=== PATIENT | female | born 1995 | race Caucasian/White ===

== ENCOUNTER 2017-04-18 17:47 | Inpatient (IN) | payer OTHER ==
--- NOTE | ~2017-04-18 | DS ---
Unit #: [id number] #: [id number] Patient: JOSE M BRENNER [id number] [facility] [address] [place] [address] [id number] MR#: [id number] NAME: JOSE M BRENNER ROOM: [facility] Age: 21 Sex: F Admission Date: 04/18/2017 : 1995 Discharge Date: 04/21/2017 Attending Physician: Al Garland M.D. DISCHARGE SUMMARY REASON FOR ADMISSION Jose M is a 21-year-old woman, who attempted to overdose on a bottle of pills yesterday, but was stopped by her family. 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 She felt that her current dose of Wellbutrin was ineffective and she could not contract for safety. After [facility] was [facility] Please see [facility] records. HOSPITAL COURSE The patient was admitted and placed on suicide precautions. Wellbutrin XL was increased to 300 mg daily and she participated in psychotherapy groups and activities. She had no further suicidal ideation after admission, and her affect and mood brightened. On the date of discharge, she felt safe to return to the outpatient setting with no further suicidal ideation, intent, or plan. DISCHARGE DIAGNOSES AXIS I: Major depression, F33.2. AXIS II: No diagnosis. AXIS III: No acute. AXIS IV: AXIS V: DISCHARGE INSTRUCTIONS Follow up with [facility] and primary care physician. DISCHARGE MEDICATIONS 1. Wellbutrin XL 300 mg daily for depression. 2. Trazodone 50 mg at bedtime as needed for insomnia. CONDITION AT DISCHARGE Improved. PROGNOSIS Fair to good. DIET Per primary care doctor. Unit #: [id number] #: [id number] Patient: JOSE M BRENNER ACTIVITY Per primary care doctor. Dictated by... Al Garland M.D. MRH/yasminl TD: 04/21/2017 18:11 JOB #: [id number] DISCHARGE SUMMARY Page 1 of 1 X Al Garland MD X DISCHARGE SUMMARY
--- NOTE | ~2017-04-18 | HP ---
Unit #: [id number] #: [id number] Patient: JOSE M BRENNER [id number] [place] [address] [id number] MR#: [id number] NAME: JOSE M BRENNER ROOM: [facility] Age: 21 Sex: F Admission Date: 04/18/2017 : 1995 Attending Physician: Al Garland M.D. Admitting Physician: Al Garland M.D. Primary Care Physician: Primary Care Physician No HISTORY AND PHYSICAL HISTORY OF PRESENT ILLNESS Jose M is a 21 year old admitted to [address] [place] [address] with depression and verbalizing wanting to hurt herself. PAST MEDICAL HISTORY obesity PAST SURGICAL HISTORY 1. T & A 2. Cholecystectomy ALLERGIES No known drug allergies. SOCIAL HISTORY She does not smoke, drinks alcohol socially and denies illicit drug use. FAMILY HISTORY Medically noncontributory. REVIEW OF SYSTEMS CONSTITUTIONAL: No fever or chills. HEENT: Denies any sore throat, ear pain or runny nose. CARDIOVASCULAR: Denies chest pain, irregular heart rhythm or palpitations. CHEST: Denies shortness of breath or cough. No hemoptysis. GASTROINTESTINAL: Denies nausea, vomiting, diarrhea or chronic constipation. ENDOCRINE: Denies history of increased thirst or urination. No recent significant weight loss or gain. GENITOURINARY: Denies dysuria, frequency, or hematuria. SKIN: Denies any rashes. HEMATOLOGIC: Denies history of increased bleeding or bruising. MUSCULOSKELETAL: Denies any hot, swollen joints. No generalized muscle pain. NEUROLOGIC: Denies problems with vision or speech. No frequent, severe headaches. No numbness, tingling or weakness in any extremities. Denies loss of bladder or bowel control. CURRENT MEDICATIONS 1. Wellbutrin XL 300 mg q day 2. Milk of Magnesia p.r.n. 3. Maalox p.r.n. Unit #: [id number] #: [id number] Patient: JOSE M BRENNER 4. Tylenol p.r.n. PHYSICAL EXAMINATION GENERAL: Alert, obese, in no apparent distress. VITAL SIGNS: Blood pressure 118/40, heart rate 80, respirations 16, temperature 98.6. WEIGHT: 175 pounds. HEIGHT: 5'5". SKIN: Warm and dry without rash or lesion. HEENT: Normocephalic. TMs not viewed. Oral and nasal passages clear. Conjunctivae clear. Pupils equal, round and reactive to light and accommodation. Extraocular movements intact. NECK: Supple without lymphadenopathy or thyromegaly. HEART: Regular rate and rhythm without murmur. LUNGS: Clear. ABDOMEN: Soft, nontender. : Not done. EXTREMITIES: No evidence of cyanosis, clubbing or edema. Moves all extremities without focal deficit. NEUROLOGICAL: Grossly within normal limits. Cranial Nerves: II: Visual limon are intact. III, IV AND : Extraocular movements are intact. Pupils are equal, round and reactive to light. V: Facial sensation is grossly normal. VII: Facial movements and expression are normal. VIII: Auditory acuity grossly intact. IX, X: Uvula is midline. Phonation is normal. XI: Patient shrugs shoulders and turns head normally. XII: Tongue protrudes in the midline. Sensory and Motor Function: Sensory and motor sensation is grossly normal. Motor: moves all extremities well. Coordination: Gait is normal. Deep Tendon Reflexes: Intact. IMPRESSION Psychiatric admission RECOMMENDATIONS PSYCHIATRIC: Per psychiatrist. MEDICAL: I see no contraindications to participating in facility's activities. MEDICAL PROGNOSIS Good. MEDICAL CONDITION Stable. Dictated by... Beti Méndez PAtaAAta-Alo. for Maribel Bright/liliana TD: 04/20/2017 06:59 JOB #: [id number] Unit #: [id number] #: [id number] Patient: JOSE M BRENNER HISTORY AND PHYSICAL Page 1 of 1 X Beti Méndez HISTORY AND PHYSICAL
--- NOTE | ~2017-04-18 | PA ---
Unit #: [id number] #: [id number] Patient: JOSE M MONTGOMERY [id number] [facility] [address] [place] [address] [id number] MR#: [id number] NAME: JOSE M MONTGOMERY ROOM: P262 Age: 21 Sex: F Admission Date: 04/18/2017 : 1995 Date of Assessment: 04/18/2017 Attending Physician: Al Garland M.D. Admitting Physician: Al Garland M.D. Primary Care Physician: Primary Care Physician No PSYCHIATRIC ASSESSMENT INFORMANTS Patient, reliable; [facility]; [facility], reliable. CHIEF COMPLAINT Overdose. HISTORY OF PRESENT ILLNESS Jose M Montgomery is a 21-year-old woman, who is stopped from taking an entire bottle of pills yesterday by her family. 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 She feels disrespected and disliked by her family and has been unable to maintain sobriety. She has been taking Wellbutrin, but feels it was ineffective and the dose was just increased by her primary care physician. After she was medically evaluated at [facility], she was transferred to [facility]. PAST PSYCHIATRIC HISTORY The patient has been treated by her outpatient doctor using Wellbutrin XL 150 mg daily. She also sees a therapist and is ordered to attend anger management classes. FAMILY PSYCHIATRIC HISTORY The patient has an uncle with alcoholism. SOCIAL HISTORY The patient denied any history of childhood abuse or neglect. She is a single heterosexual woman, who has 2 young children, who is temporarily in the custody of her mother after suspected neglect. 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 PAST MEDICAL HISTORY No chronic medical problems. MEDICATIONS None except as noted above. ALLERGIES No known medication allergies. SUBSTANCE USE HISTORY The patient denies a history of chemical abuse or dependence. MENTAL STATUS EXAMINATION Unit #: [id number] #: [id number] Patient: JOSE M MONTGOMERY presented as a mildly disheveled woman, who appeared her stated age. She was cooperative with the examination. Her speech was spontaneous and easily understood. Her musculoskeletal examination was calm. Her mood was severely depressed with a congruent and tearful affect. She was alert and fully oriented. Her memory and concentration were intact. Her thought processes were logical with no active psychosis. She reported suicidal ideation and could not contract for safety against another overdose if released from the hospital. Insight and judgment were fair. Fund of knowledge and abstraction were fair. ASSETS AND LIABILITIES The patient is youthful, voluntary, and has some local resources available to her liabilities in lack response to current medication and CPS involvement. ADMITTING DIAGNOSES AXIS I: Major depression, F33.2. AXIS II: No diagnosis. AXIS III: Recent overdose. AXIS IV: AXIS V: PSYCHIATRIC PLAN The patient was admitted and placed on suicide precautions. We will increase Wellbutrin XL to 300 mg daily and the patient will enroll in psychotherapy groups, and activities. A physical examination and laboratory studies will be obtained as indicated. TREATMENT GOALS Resolution of SI, improvement in insight, and improvement in coping skills. DISCHARGE PLANNING Follow up with [facility] for therapy and medication management. ESTIMATED LENGTH OF STAY 5 days. Dictated by... Al Garland M.D. STEPHEN/tra TD: 04/19/2017 12:14 JOB #: [id number] Unit #: [id number] #: [id number] Patient: JOSEM MONTGOMERY PSYCHIATRIC ASSESSMENT Page 1 of 1 X Al Garland MD X PSYCHIATRIC ASSESSMENT
== END 2017-04-21 11:40 | disposition home or self-care (01) | DRG 881 ==
LOC: P2L 20:13
DX: F32.9 Major depressive disorder, single episode, unspecified (principal); E66.9 Obesity, unspecified; Z90.49 Acquired absence of other specified parts of digestive tract